=== PATIENT | male | born 1980 | race Caucasian/White ===

== ENCOUNTER 2017-10-14 13:17 | Outpatient (CLI) | payer BC ==
--- NOTE | 2017-10-14 14:41 | ULT ---
EXAM: TESTICULAR ULTRASOUND: HISTORY: Mass on top of the right testicle x 10 yeas. Slight change recently. Familial history of testicular cancer. Epididymal mass on the right side. COMPARISON: None. TECHNIQUE: Sagittal and transverse imaging of the testicles is performed. Testicles are evaluated with arthur sca le, color flow, Doppler imaging, and spectral waveform analysis. FINDINGS: RIGHT HEMISCROTUM: The right testicle has a homogeneous echotexture. No intratesticular masses. The right testicle frida sures 4.9 x 2.7 x 3.0 cm. There is an anechoic focus in the right epididymis measuring 1.6 x 1.0 x 1.8 cm compatible with a cys t. Overall, the right epididymis measures 1.9 x 1.5 cm. No significant free fluid in the right daniela scrotum. LEFT HEMISCROTUM: The left testicle has an essentially homogeneous echotexture. There is a punctate echogenic focus li isabelle due to a small calcification measuring less than 0.2 cm. There are no solid masses. The left t esticle measures 3.5 x 4.3 x 2.1 cm. Left epididymis has a normal echotexture measuring 1.1 x 0.7 cm . There is no free fluid in the left hemiscrotum. TESTICULAR DOPPLER: Vascular flow to the left and right testicle. IMPRESSION: 1. Right epididymal cyst. 2. No evidence of a solid mass in either testicle. POS: [facility]
== END 2017-10-14 13:18 | disposition home or self-care (01) ==
LOC: SCSULT 13:17
PROVIDERS: ATTEND Family Medicine
DX: N50.3 Cyst of epididymis (principal); Z80.43 Family history of malignant neoplasm of testis
CPT/HCPCS: 76870; 93976

== ENCOUNTER 2017-10-27 09:38 | Day surgery (SDC) | payer BC ==
[2017-10-26 15:43] VITALS: BMI 21.6
[2017-10-27] MEDS ORDERED: Oxymetazoline HCl 0.05% ( 15 ML ) ONE ×2 (10:20→11:00)
[2017-10-27] MEDS ORDERED: Bacitracin Zinc Ointment 30 gm TUBE ONE (11:00)
[2017-10-27] MEDS ORDERED: Lidocaine 1% w/Epinephrine 1:200K 30 ML VIAL ONE (11:00)
[2017-10-27] MEDS ORDERED: Fentanyl 100 MCG/2 ML VIAL ONE ×2 (11:04→12:36)
--- NOTE | 2017-10-27 12:51 | OP ---
DATE OF PROCEDURE: 10/27/2017 SURGEON: Lenin Oliva M.D. PREOPERATIVE DIAGNOSES: Profound septal deformity, hypertrophic inferior turbinates. POSTOPERATIVE DIAGNOSES: Profound septal deformity, hypertrophic inferior turbinates. PROCEDURE PERFORMED: Septoplasty and bilateral nasal endoscopy with submucosal resection of the infe rior turbinates. PROCEDURE IN DETAIL: After consent was obtained, the patient was identified, brought to the operatin g room, and placed on the operating room table in the supine position. Consent was obtained, notifyi ng the patient of the possibility of additional infections, bleeding, brain injury, and eye/orbital i njury. The patient was placed on the operating room table, and general endotracheal anesthesia and intravenous access was obtained. The patient was then positioned, prepped and draped for endoscopic sinus surgery. Nasal preparation included trimming nasal vestibular hairs and spraying in topical Af rin. We then placed Afrin topical solution on nasal pledgets and strategically located them intranas ally. The perinasal mucosa was injected with 1% lidocaine with 1:100,000 epinephrine in the submucop erichondrial plane of the septum, lateral nasal wall, and anterior to the uncinate. The patient was then prepped and draped in a sterile fashion and positioned for endoscopic sinus surgery. After local anesthesia was infiltrated into the submucoperichondrial plane, a standard Edwar incisi on was made with a #15 blade down to the level of the septal cartilage. The caudal elevator was used to elevate the mucoperichondrium from the underlying cartilage. We then proceeded beyond the bony c artilaginous junction and elevated the bony periosteum as well. Great attention was paid to the spur to prevent rent formation in the septal flap. A transcartilaginous incision was then made, while pr eserving an adequate dorsal and caudal cartilaginous strut for tip support. The deformed cartilage w as removed and disarticulated from the bony cartilaginous junction and maxillary crest. This was antwan luis fernando in saline and would later be crushed and returned to the mucoperichondrial envelope. We then artie vated the contralateral periosteum from the bony cartilaginous region and removed the deformed portio ns of the bone and bony spurs. The cartilage was then crushed and placed back into the mucoperichond rial envelope and the mucosa was re-approximated with a quilting stitch composed of rapidly absorbent gut suture. The [place] incision was also closed with interrupted gut suture. At the completion of the case, Romeo splints were placed and suture secured to the caudal septum. The inferior turbinates were visualized under endoscopic visualization and outfractured with the elev ator. The inferolateral edge of the inferior turbinate was then cauterized along its length with the suction cautery without difficulty. The inferior turbinates were visualized with a 0-degree endoscope and outfractured with a Marline eleva tor. The inferior medial aspect was cauterized with the electrocautery. Hemostasis was obtained . After adequate airway was established, we turned our attention to the contralateral side and used a s imilar procedure. Again, a Marline elevator was used to outfracture inferior turbinates under endoscop ic visualization. With a suction cautery, the free inferior medial aspect was cauterized under direc t visualization along the length of the inferior turbinate. At this point, we then turned our attention to the contralateral side and proceeded with endoscopic s inus surgery. At the completion of the case, Rice keel splints were placed in the ethmoid cavities after the ethmoi dectomy. There were no complications. The patient tolerated the procedure well and was discharged t o the recovery room in stable condition prior to return to the preoperative Day Stay with [facility]. Prescriptions for pain medication and antibiotics were provided. The patient received intramuscular Depo-Medrol during the case.
[2017-10-27] MEDS ORDERED: Dexamethasone 20 MG/5 ML VIAL ONE (16:16)
[2017-10-27] MEDS ORDERED: Propofol 200 MG/20 ML VIAL ONE (16:16)
[2017-10-27] MEDS ORDERED: Lidocaine 1% PF 5 ML VIAL ONE (16:16)
[2017-10-27] MEDS ORDERED: Ondansetron HCl/PF 4 MG/2 ML Vial ONE (16:16)
[2017-10-27] MEDS ORDERED: Glycopyrrolate 0.2 MG/ML 5 ML SYRINGE ONE (16:16)
== END 2017-10-27 15:15 | disposition home or self-care (01) ==
LOC: SDC 09:38
PROVIDERS: ATTEND Specialist
PROC: 09BM8ZZ Excision of Nasal Septum, Via Natural or Artificial Opening Endoscopic (ICD-10-PCS; principal; 2017-10-27)
DX: J34.2 Deviated nasal septum (principal); J34.3 Hypertrophy of nasal turbinates; Z98.890 Other specified postprocedural states; J30.9 Allergic rhinitis, unspecified
CPT/HCPCS: 96374; J1100; J2001; J2405; J2704; J3010